=== PATIENT | female | born 1940 | race Caucasian/White ===

== ENCOUNTER 2016-06-14 08:08 | Emergency (ER) | payer MEDICARE, BC | END 2016-06-14 12:37 | disposition home or self-care (01) | DX: R07.89 Other chest pain (principal); R14.2 Eructation ==

== ENCOUNTER 2016-06-18 09:41 | Outpatient (CLI) | payer MEDICARE, BC | END 2016-06-18 09:42 | disposition home or self-care (01) | DX: Z13.820 Encounter for screening for osteoporosis (principal); M85.88 Other specified disorders of bone density and structure, other site; Z78.0 Asymptomatic menopausal state ==

== ENCOUNTER 2016-06-18 09:46 | Outpatient (CLI) | payer MEDICARE, BC | END 2016-06-18 09:47 | disposition home or self-care (01) | DX: Z12.31 Encounter for screening mammogram for malignant neoplasm of breast (principal); Z80.3 Family history of malignant neoplasm of breast ==

== ENCOUNTER 2016-11-09 15:00 | Outpatient (CLI) | payer MEDICARE, BC | END 2016-11-09 15:01 | disposition home or self-care (01) | LOC: LAB 15:00 | PROVIDERS: ATTEND Internal Medicine | DX: R60.0 Localized edema (principal); M25.562 Pain in left knee | CPT/HCPCS: 36415; 85379; 85651; 86140 ==

== ENCOUNTER 2017-07-29 16:19 | Outpatient (CLI) | payer MEDICARE, BC ==
[2017-07-29 16:42] LABS: BASOPHILS # (AUTO) 0.1 10^3/uL (0.0-0.1); BASOPHILS % (AUTO) 1.1 %; EOSINOPHILS # (AUTO) 0.2 10^3/uL (0.0-0.7); EOSINOPHILS % (AUTO) 2.1 %; HGB - HEMOGLOBIN 13.3 g/dL (12.0-16.0); LYMPHOCYTES # (AUTO) 2.8 10^3/uL (1.5-3.5); MEAN CORPUSCULAR HEMOGLOBIN 30.2 pg (27.0-31.0); MEAN CORPUSCULAR HGB CONC 33.6 g/dL (32.0-36.0); MEAN CORPUSCULAR VOLUME 89.9 fL (81.0-99.0); MEAN PLATELET VOLUME 8.3 fL (7.9-10.8); MONOCYTES % (AUTO) 9.5 %; NEUTROPHILS # (AUTO) 6.3 10^3/uL (1.5-6.6); NEUTROPHILS % (AUTO) 60.3 %; PLT - PLATELET COUNT 534 10^3/uL (130-450); RED BLOOD COUNT 4.41 10^6/uL (4.20-5.40); RED CELL DISTRIBUTION WIDTH 14.6 % (12.0-15.0); WHITE BLOOD COUNT 10.4 x10^3/uL (4.8-10.8)
== END 2017-07-29 16:20 | disposition home or self-care (01) ==
LOC: LAB 16:19
PROVIDERS: ATTEND Orthopaedic Surgery
DX: T84.84XA Pain due to internal orthopedic prosthetic devices, implants and grafts, initial encounter (principal)
CPT/HCPCS: 36415; 85025; 85651; 86140

== ENCOUNTER 2017-08-23 12:55 | Outpatient (CLI) | payer MEDICARE, BC ==
--- NOTE | 2017-08-24 14:02 | Mammography Report ---
DIGITAL SCREENING MAMMOGRAM: 08/23/2017 CLINICAL INDICATION: A 76-year-old nulliparous patient with family history of breast cancer, history of benign biopsy for screening. COMPARISON: 06/2016, 02/2012, 04/2010, 01/2009. TECHNIQUE: Routine CC and MLO projections were obtained of the breasts. FINDINGS: The breasts demonstrate scattered fibroglandular densities bilaterally. Coarse and punctate, typically benign calcifications are present. Post-biopsy changes are stable. No suspicious masses, clustered microcalcifications, or regions of architectural distortion are identified. IMPRESSION: BENIGN FINDINGS. RECOMMENDATION: Routine annual screening unless otherwise clinically indicated. BI-RADS CATEGORY 2 - BENIGN FINDINGS. STANDARD QUALIFYING STATEMENTS: 1. This examination was reviewed with the aid of Computer-Aided Detection (CAD). 2. A negative or benign imaging report should not delay biopsy if clinically suspicious findings are present. Consider surgical consultation if warranted. More than 5% of cancers are not identified by imaging. 3. Dense breasts may obscure an underlying neoplasm. TD: 08/24/2017 14:02
== END 2017-08-23 12:56 | disposition home or self-care (01) ==
LOC: DI 12:55
PROVIDERS: ATTEND Internal Medicine
DX: Z12.31 Encounter for screening mammogram for malignant neoplasm of breast (principal); Z80.3 Family history of malignant neoplasm of breast
CPT/HCPCS: 77067

== ENCOUNTER 2017-08-23 13:25 | Outpatient (CLI) | payer MEDICARE, BC ==
[2017-08-23 13:55] LABS: BASOPHILS # (AUTO) 0.1 10^3/uL (0.0-0.1); BASOPHILS % (AUTO) 1.4 %; EOSINOPHILS # (AUTO) 0.2 10^3/uL (0.0-0.7); EOSINOPHILS % (AUTO) 2.1 %; HGB - HEMOGLOBIN 13.7 g/dL (12.0-16.0); LYMPHOCYTES # (AUTO) 2.4 10^3/uL (1.5-3.5); LYMPHOCYTES % (AUTO) 25.4 %; MEAN CORPUSCULAR HEMOGLOBIN 30.1 pg (27.0-31.0); MEAN CORPUSCULAR HGB CONC 33.3 g/dL (32.0-36.0); MEAN CORPUSCULAR VOLUME 90.3 fL (81.0-99.0); MEAN PLATELET VOLUME 8.3 fL (7.9-10.8); MONOCYTES # (AUTO) 0.8 10^3/uL (0.0-1.0); MONOCYTES % (AUTO) 8.1 %; NEUTROPHILS # (AUTO) 5.8 10^3/uL (1.5-6.6); PLT - PLATELET COUNT 564 10^3/uL (130-450); RED BLOOD COUNT 4.56 10^6/uL (4.20-5.40); RED CELL DISTRIBUTION WIDTH 14.7 % (12.0-15.0); WHITE BLOOD COUNT 9.3 x10^3/uL (4.8-10.8)
[2017-08-23 14:06] LABS: ALBUMIN 4.4 g/dL (3.2-5.5); ALBUMIN/GLOBULIN RATIO 1.6 (1.0-2.2); BILIRUBIN,TOTAL 0.6 mg/dL (0.2-1.0); CALCIUM 9.2 mg/dL (8.5-10.3); CREATININE 0.7 mg/dL (0.4-1.0); TOTAL PROTEIN 7.1 g/dL (6.7-8.2)
== END 2017-08-23 13:26 | disposition home or self-care (01) ==
LOC: LAB 13:25
PROVIDERS: ATTEND Internal Medicine
DX: G62.9 Polyneuropathy, unspecified (principal); R60.0 Localized edema
CPT/HCPCS: 36415; 80053; 85025

== ENCOUNTER 2017-11-15 08:00 | Outpatient (CLI) | payer MEDICARE, BC ==
[2017-11-15 17:49] LABS: BASOPHILS # (AUTO) 0.1 10^3/uL (0.0-0.1); EOSINOPHILS # (AUTO) 0.2 10^3/uL (0.0-0.7); EOSINOPHILS % (AUTO) 1.9 %; HGB - HEMOGLOBIN 13.6 g/dL (12.0-16.0); LYMPHOCYTES # (AUTO) 2.8 10^3/uL (1.5-3.5); LYMPHOCYTES % (AUTO) 29.3 %; MEAN CORPUSCULAR HGB CONC 32.5 g/dL (32.0-36.0); MEAN CORPUSCULAR VOLUME 92.2 fL (81.0-99.0); MEAN PLATELET VOLUME 8.7 fL (7.9-10.8); MONOCYTES # (AUTO) 0.8 10^3/uL (0.0-1.0); MONOCYTES % (AUTO) 8.2 %; NEUTROPHILS # (AUTO) 5.8 10^3/uL (1.5-6.6); NEUTROPHILS % (AUTO) 59.6 %; PLT - PLATELET COUNT 619 10^3/uL (130-450); RED BLOOD COUNT 4.52 10^6/uL (4.20-5.40); RED CELL DISTRIBUTION WIDTH 14.4 % (12.0-15.0); WHITE BLOOD COUNT 9.7 x10^3/uL (4.8-10.8)
== END 2017-11-15 08:01 | disposition home or self-care (01) ==
LOC: LAB.F 08:00
PROVIDERS: ATTEND Internal Medicine
DX: D47.3 Essential (hemorrhagic) thrombocythemia (principal)
CPT/HCPCS: 85025

== ENCOUNTER 2018-03-25 16:21 | Emergency (ER) | payer MEDICARE, BC ==
[2018-03-25 16:36] VITALS: BP 164/72
--- NOTE | 2018-03-25 17:51 | XRAY Report ---
Reason: Trauma Procedure Date: 03/25/2018 Accession Number: [id number] / [id number] Procedure: XR - Hand 3 View RT CPT Code: FULL RESULT: EXAM: RIGHT HAND RADIOGRAPHY EXAM DATE: 03/25/2018 05:13 PM. CLINICAL HISTORY: Hand pain post trauma. COMPARISON: None. TECHNIQUE: 3 views. FINDINGS: Bones: There is well-corticated opacity noted about the distal aspect of the proximal phalanx of the first digit, with additional corticated opacity about the first IP joint. Old fracture deformity involving the ulnar styloid. Joints: Moderate osteoarthritic changes present. Soft Tissues: Normal. No soft tissue swelling. IMPRESSION: No obvious acute fracture seen. Well-corticated opacities described above including ulnar styloid to suggest remote fracture. If there is focal pain about the first IP joint, chip fracture may be considered. RADIA
--- NOTE | 2018-03-25 18:06 | ED Physician Documentation ---
PD HPI UPPER EXT INJURY - Stated complaint Stated Complaint: RT HAND PX - Chief complaint Chief Complaint: Ext Problem - History obtained from History obtained from: Patient, Family - History of Present Illness Location: Right, Hand Type of injury: Crush (under a rachel tree yesterday) Where injury occurred: Home Timing - onset: Yesterday Timing - duration: Days Timing - details: Abrupt onset Pain level max: 7 Pain level now: 5 Improved by: Rest, Ice, Immobilization Worsened by: Moving, Palpating Associated symptoms: Swelling, Discolored (bruising). No: Weakness, Numbness, Tingling Contributing factors: No: Anticoagulated Review of Systems Constitutional: denies: Fever Neurologic: denies: Focal weakness, Numbness PD PAST MEDICAL HISTORY - Past Medical History Cardiovascular: None Respiratory: None Neuro: None Endocrine/Autoimmune: None GI: None : None HEENT: None Psych: None Musculoskeletal: Osteoarthritis Derm: None - Past Surgical History Past Surgical History: Yes Ortho: Knee replacement - Present Medications Home Medications: Ambulatory Orders Medication Instructions Recorded Confirmed Ascorbic Acid [Vitamin C] 1 tab ORAL DAILY 12/06/17 02/21/18 Aspirin 1 tab ORAL DAILY 12/06/17 02/21/18 Cholecalciferol [Vitamin D3] 1 tab ORAL DAILY 12/06/17 02/21/18 Magnesium 1 tab ORAL DAILY 12/06/17 02/21/18 Hydroxyurea 03/25/18 03/25/18 - Allergies Allergies/Adverse Reactions: Allergies Allergy/AdvReac Type Severity Reaction Status Date / Time ciprofloxacin [From Cipro] Allergy Unknown Verified 03/25/18 16:36 ciprofloxacin HCl * Allergy Unknown Verified 03/25/18 16:36 [From Cipro] codeine Allergy Unknown Verified 03/25/18 16:36 erythromycin base Allergy Unknown Verified 03/25/18 16:36 Opioids-Methadone and Related Allergy Unknown Verified 03/25/18 16:36 Penicillins Allergy Unknown Verified 03/25/18 16:36 - Social History Does the pt smoke?: No Smoking Status: Never smoker Does the pt drink ETOH?: Yes Does the pt have substance abuse?: No - POLST Patient has POLST: No PD ED PE NORMAL - Vitals Vital signs reviewed: Yes - General General: Alert and oriented X 3, No acute distress - Derm Derm: Warm and dry - Extremities Extremities: Other (Right hand - Swelling to the dorsum of the hand, especially over the second and third metacarpal joints. There is ecchymosis and mild redness. Neurovascularly intact. No evidence of tendon injury. No wrist tenderness.) - Neuro Neuro: Alert and oriented X 3 Results - Vitals Vitals: Vital Signs - 24 hr 03/25/18 16:34 Temperature 36.4 C L Heart Rate 70 Respiratory 16 Rate Blood Pressure 164/72 H O2 Saturation 98 Oxygen O2 Source Room air - Rads (name of study) R hand xray Radiology: Prelim report reviewed, EMP read contemporaneously, See rad report (No acute bony abnormality) Procedures - Splint (location) R hand Splint applied by: Physician, Tech Type of splint: Fiberglass, Volar cock up Other: Patient tolerated well, No complications, Neurovascular intact PD MEDICAL DECISION MAKING - ED course Complexity details: reviewed results, considered differential, d/w patient, d/w family ED course: Patient is a 77-year-old female with a crush injury to the right hand. No acute bony abnormalities. Placed in a volar splint for comfort. Neurovascularly intact. Declines any pain medication here or for home. Patient counseled regarding signs and symptoms for which I believe and urgent re-evaluation would be necessary. Patient with good understanding of and agreement to plan and is comfortable going home at this time This document was made in part using voice recognition software. While efforts are made to proofread this document, sound alike and grammatical errors may occur. Departure - Departure Disposition: 01 Home, Self Care Clinical Impression: Contusion of right hand Qualifiers: Encounter type: initial encounter Qualified Code(s): S60.221A - Contusion of right hand, initial encounter Condition: Good Instructions: ED Contusion Hand Follow-Up: Gunnar Szymanski MD [Primary Care Provider] - Within 1 week Comments: You can use Motrin or Tylenol as needed for pain at home. Return if you worsen. Your x-rays are normal today. Wear the splint as needed for comfort. Discharge Date/Time: 03/25/18 18:42
== END 2018-03-25 18:42 | disposition home or self-care (01) ==
LOC: ED 16:21
DX: S60.221A Contusion of right hand, initial encounter (principal); W23.0XXA Caught, crushed, jammed, or pinched between moving objects, initial encounter; Y92.009 Unspecified place in unspecified non-institutional (private) residence as the place of occurrence of the external cause; Z96.659 Presence of unspecified artificial knee joint; Z79.82 Long term (current) use of aspirin
CPT/HCPCS: 29125; 99282; 99283

== ENCOUNTER 2018-06-19 09:57 | Outpatient (CLI) | payer MEDICARE, BC ==
[2018-06-19 20:23] LABS: BASOPHILS # (AUTO) 0.1 10^3/uL (0.0-0.1); BASOPHILS % (AUTO) 1.1 %; EOSINOPHILS # (AUTO) 0.1 10^3/uL (0.0-0.7); EOSINOPHILS % (AUTO) 1.8 %; HGB - HEMOGLOBIN 14.1 g/dL (12.0-16.0); LYMPHOCYTES # (AUTO) 2.2 10^3/uL (1.5-3.5); LYMPHOCYTES % (AUTO) 34.4 %; MEAN CORPUSCULAR HEMOGLOBIN 32.5 pg (27.0-31.0); MEAN CORPUSCULAR VOLUME 98.5 fL (81.0-99.0); MEAN PLATELET VOLUME 8.9 fL (7.9-10.8); MONOCYTES # (AUTO) 0.5 10^3/uL (0.0-1.0); MONOCYTES % (AUTO) 8.3 %; NEUTROPHILS # (AUTO) 3.5 10^3/uL (1.5-6.6); NEUTROPHILS % (AUTO) 54.4 %; PLT - PLATELET COUNT 410 10^3/uL (130-450); RED BLOOD COUNT 4.33 10^6/uL (4.20-5.40); RED CELL DISTRIBUTION WIDTH 14.9 % (12.0-15.0); WHITE BLOOD COUNT 6.4 x10^3/uL (4.8-10.8)
== END 2018-06-19 09:58 | disposition home or self-care (01) ==
LOC: LAB.F 09:57
PROVIDERS: ATTEND Physician Assistant Surgical
DX: Z96.652 Presence of left artificial knee joint (principal)
CPT/HCPCS: 36415; 85025; 86140

== ENCOUNTER 2018-08-07 15:05 | Emergency (ER) | payer MEDICARE, BC ==
--- NOTE | 2018-08-07 17:09 | Ultrasound Report ---
Reason: Leg pain Procedure Date: 08/07/2018 Accession Number: [id number] / [id number] Procedure: US - Duplex Ext Veins Right CPT Code: FULL RESULT: EXAM: RIGHT LOWER EXTREMITY VENOUS ULTRASOUND EXAM DATE: 08/07/2018 03:50 PM. CLINICAL HISTORY: Leg pain. COMPARISON: None. TECHNIQUE: Real-time sonographic vascular imaging was performed by the airfield manager through the lower extremity utilizing both color-flow and Doppler spectral analysis. Multiple telesales representative static images were saved for review. FINDINGS: Common Femoral Vein (CFV): Normal. CFV-GSV Junction: Normal. Profunda Femoral Vein (PFV): Normal. Femoral Vein (FV) Prox: Normal. Femoral Vein (FV) Mid: Normal. Femoral Vein (FV) Dist: Normal. Popliteal Vein: Normal. Posterior Tibial Veins: Normal. Peroneal Veins: Normal. Contralateral Side CFV: Normal. Other: None. IMPRESSION: No evidence for deep venous thrombosis. RADIA
--- NOTE | 2018-08-07 17:12 | ED Physician Documentation ---
PD HPI LOWER EXT INJURY - Stated complaint Stated Complaint: SENT BY DR/DVT RULE OUT - Chief complaint Chief Complaint: Ext Problem - History obtained from History obtained from: Patient, Family - History of Present Illness PD HPI LOW EXT INJURY LOCATION: Right (Burning right medial calf pain since last night without injury. She has diagnoses of spinal stenosis and chronic regional pain syndrome but just drove 5 to 5 days from [place] and is here to rule DVT. No chest pain or trouble breathing.) Review of Systems Constitutional: reports: Reviewed and negative Cardiac: reports: Reviewed and negative Respiratory: reports: Reviewed and negative PD PAST MEDICAL HISTORY - Past Medical History Cardiovascular: None Respiratory: None Neuro: None Endocrine/Autoimmune: None GI: None : None HEENT: None Psych: None Musculoskeletal: Osteoarthritis Derm: None - Past Surgical History Past Surgical History: Yes Ortho: Knee replacement - Present Medications Home Medications: Ambulatory Orders Medication Instructions Recorded Confirmed Aspirin 1 tab ORAL DAILY 12/06/17 06/20/18 Cholecalciferol [Vitamin D3] 1 tab ORAL DAILY 12/06/17 06/20/18 Hydroxyurea 1 tab ORAL DAILY 03/25/18 06/20/18 Alpha. 1 tab ORAL DAILY 06/20/18 06/20/18 Vitamin B1 1 tab ORAL DAILY 06/20/18 06/20/18 Vitamin B12 2 tab ORAL DAILY 06/20/18 06/20/18 - Allergies Allergies/Adverse Reactions: Allergies Allergy/AdvReac Type Severity Reaction Status Date / Time ciprofloxacin [From Cipro] Allergy Unknown Verified 03/25/18 16:36 ciprofloxacin HCl * Allergy Unknown Verified 03/25/18 16:36 [From Cipro] codeine Allergy Unknown Verified 03/25/18 16:36 erythromycin base Allergy Unknown Verified 03/25/18 16:36 Opioids-Methadone and Related Allergy Unknown Verified 03/25/18 16:36 Penicillins Allergy Unknown Verified 08/07/18 15:13 - Social History Does the pt smoke?: No Smoking Status: Never smoker Does the pt drink ETOH?: Yes Does the pt have substance abuse?: No - Immunizations Immunizations are current?: Yes - POLST Patient has POLST: No PD ED PE NORMAL - Vitals Vital signs reviewed: Yes - General General: Alert and oriented X 3, No acute distress - Extremities Extremities: No edema, No calf tenderness / cord - Neuro Neuro: Alert and oriented X 3, Normal speech Results - Vitals Vitals: Vital Signs - 24 hr 08/07/18 15:12 Temperature 36.8 C Heart Rate 76 Respiratory 20 Rate Blood Pressure 120/108 H O2 Saturation 99 Oxygen O2 Source Room air - Rads (name of study) RLE DVt sono Radiology: EMP read contemporaneously (neg) Departure - Departure Disposition: Home, Self Care Clinical Impression: Pain of lower extremity Qualifiers: Laterality: right Qualified Code(s): M79.604 - Pain in right leg Condition: Good Record reviewed to determine appropriate education?: Yes Instructions: ED Acute Pain [facility] Comments: Your blood pressure was elevated today on check into the emergency department. This does not mean that you have hypertension, it is a common phenomenon to come to the emergency department and have elevated blood pressure. I recommend that you see your primary care physician within the week to have it rechecked when you are feeling better.
[2018-08-07 17:20] VITALS: BP 140/78
== END 2018-08-07 17:40 | disposition home or self-care (01) ==
LOC: ED 15:05
DX: M79.604 Pain in right leg (principal); R03.0 Elevated blood-pressure reading, without diagnosis of hypertension; Z96.659 Presence of unspecified artificial knee joint
CPT/HCPCS: 99282; 99283

== ENCOUNTER 2018-09-29 08:00 | Outpatient (CLI) | payer MEDICARE, BC ==
[2018-09-29 17:39] LABS: BILIRUBIN,URINE NEGATIVE (NEGATIVE); GLUCOSE, URINE (UA) NEGATIVE (NEGATIVE); KETONES,URINE (UA) NEGATIVE (NEGATIVE); LEUKOCYTE ESTERASE, URINE NEGATIVE (NEGATIVE); NITRITE,URINE NEGATIVE (NEGATIVE); OCCULT BLOOD,URINE NEGATIVE (NEGATIVE); PH,URINE 5.5 PH (5.0-7.5); PROTEIN,URINE NEGATIVE (NEGATIVE); UROBILINOGEN,URINE 0.2 (NORMAL) E.U./dL (NORMAL)
[2018-09-29 17:46] LABS: BACTERIA,URINE None Seen /HPF (None Seen); CLARITY,URINE CLEAR (CLEAR); RBC,URINE 0-5 /HPF (0-5); SQUAMOUS EPITHELIAL CELL,UR NONE SEEN (<= Few)
== END 2018-09-29 23:59 | disposition home or self-care (01) ==
LOC: LAB.R 08:00
PROVIDERS: ATTEND Obstetrics & Gynecology
DX: R32 Unspecified urinary incontinence (principal)
CPT/HCPCS: 81001; 87086

== ENCOUNTER 2019-10-16 09:33 | Outpatient (CLI) | payer MEDICARE, BC | END 2019-10-16 09:34 | disposition home or self-care (01) | LOC: DI 09:33 | PROVIDERS: ATTEND Nurse Practitioner | DX: Z53.9 Procedure and treatment not carried out, unspecified reason (principal) ==

== ENCOUNTER 2020-09-05 09:39 | Outpatient (CLI) | payer MEDICARE, BC ==
[2020-09-05 14:30] LABS: BASOPHILS % (AUTO) 0.6 %; EOSINOPHILS # (AUTO) 0.2 10^3/uL (0.0-0.7); EOSINOPHILS % (AUTO) 2.2 %; HCT - HEMATOCRIT 45.1 % (37.0-47.0); HGB - HEMOGLOBIN 14.2 g/dL (12.0-16.0); LYMPHOCYTES # (AUTO) 2.1 10^3/uL (1.5-3.5); LYMPHOCYTES % (AUTO) 30.8 %; MEAN CORPUSCULAR HEMOGLOBIN 32.1 pg (27.0-31.0); MEAN CORPUSCULAR HGB CONC 31.5 g/dL (32.0-36.0); MEAN CORPUSCULAR VOLUME 101.8 fL (81.0-99.0); MEAN PLATELET VOLUME 10.4 fL (7.9-10.8); MONOCYTES # (AUTO) 0.7 10^3/uL (0.0-1.0); MONOCYTES % (AUTO) 9.6 %; NEUTROPHILS # (AUTO) 3.8 10^3/uL (1.5-6.6); NEUTROPHILS % (AUTO) 56.5 %; PLT - PLATELET COUNT 510 10^3/uL (130-450); RED BLOOD COUNT 4.43 10^6/uL (4.20-5.40); WHITE BLOOD COUNT 6.8 x10^3/uL (4.8-10.8)
[2020-09-05 15:39] LABS: ALBUMIN 4.5 g/dL (3.2-5.5); ALBUMIN/GLOBULIN RATIO 1.6 (1.0-2.2); ALKALINE PHOSPHATASE 61 IU/L (42-121); ALT ALANINE AMINOTRANSFERASE 18 IU/L (10-60); AST ASPARTATE AMINOTRANSFERASE 26 IU/L (10-42); BUN - BLOOD UREA NITROGEN 21 mg/dL (6-20); CALCIUM 9.2 mg/dL (8.5-10.3); CARBON DIOXIDE - CO2 28 mmol/L (21-32); CHLORIDE 101 mmol/L (101-111); CHOL/HDL RATIO 3.4 (<4.4); CHOLESTEROL 231 mg/dL; CREATININE 0.7 mg/dL (0.4-1.0); GFR - MDRD 80 (>89); GLUCOSE 100 mg/dL (70-100); HDL CHOLESTEROL 68 mg/dL; LDL CHOLESTEROL,CALCULATED 144 mg/dL; LDL/HDL RATIO 2.1 (<4.4); POTASSIUM 4.6 mmol/L (3.5-5.0); SODIUM 136 mmol/L (135-145); TOTAL PROTEIN 7.4 g/dL (6.7-8.2); TRIGLYCERIDES 94 mg/dL; VLDL CHOLESTEROL 19 mg/dL
[2020-09-05 15:49] LABS: THYROID STIMULATING HORMONE 3.47 uIU/mL (0.34-5.60)
[2020-09-05 18:45] LABS: ESTIMATED AVERAGE GLUCOSE 105 mg/dL (70-100); HEMOGLOBIN A1c% 5.3 % (4.27-6.07)
== END 2020-09-05 09:40 | disposition home or self-care (01) ==
LOC: LAB.S 09:39
PROVIDERS: ATTEND Internal Medicine
DX: D47.3 Essential (hemorrhagic) thrombocythemia (principal); Z13.220 Encounter for screening for lipoid disorders; G62.9 Polyneuropathy, unspecified
CPT/HCPCS: 36415; 80053; 80061; 81599; 82607; 83036; 83721; 84155; 84165; 84443; 85025; 86334

== ENCOUNTER 2021-06-22 14:36 | Outpatient (CLI) | payer MEDICARE, BC ==
[2021-06-22 14:54] LABS: BASOPHILS # (AUTO) 0.1 10^3/uL (0.0-0.1); BASOPHILS % (AUTO) 0.7 %; EOSINOPHILS # (AUTO) 0.1 10^3/uL (0.0-0.7); EOSINOPHILS % (AUTO) 1.6 %; HCT - HEMATOCRIT 40.9 % (37.0-47.0); HGB - HEMOGLOBIN 13.3 g/dL (12.0-16.0); LYMPHOCYTES % (AUTO) 24.3 %; MEAN CORPUSCULAR HEMOGLOBIN 32.8 pg (27.0-31.0); MEAN CORPUSCULAR HGB CONC 32.5 g/dL (32.0-36.0); MEAN PLATELET VOLUME 10.1 fL (7.9-10.8); MONOCYTES # (AUTO) 0.9 10^3/uL (0.0-1.0); MONOCYTES % (AUTO) 10.2 %; NEUTROPHILS # (AUTO) 5.3 10^3/uL (1.5-6.6); PLT - PLATELET COUNT 441 10^3/uL (130-450); RED BLOOD COUNT 4.05 10^6/uL (4.20-5.40); RED CELL DISTRIBUTION WIDTH 14.6 % (12.0-15.0); WHITE BLOOD COUNT 8.4 x10^3/uL (4.8-10.8)
[2021-06-22 15:10] LABS: CHOL/HDL RATIO 2.9 (<4.4); CHOLESTEROL 211 mg/dL; HDL CHOLESTEROL 72 mg/dL; LDL CHOLESTEROL,CALCULATED 125 mg/dL; LDL/HDL RATIO 1.7 (<4.4); TRIGLYCERIDES 71 mg/dL; VLDL CHOLESTEROL 14 mg/dL
[2021-06-22 15:21] LABS: THYROID STIMULATING HORMONE 3.18 uIU/mL (0.34-5.60)
== END 2021-06-22 14:37 | disposition home or self-care (01) ==
LOC: LAB 14:36
PROVIDERS: ATTEND Nurse Practitioner Family
DX: I88.9 Nonspecific lymphadenitis, unspecified (principal); E78.5 Hyperlipidemia, unspecified
CPT/HCPCS: 36415; 80061; 83721; 84443; 85025

== ENCOUNTER 2021-06-23 09:34 | Outpatient (CLI) | payer MEDICARE, BC ==
--- NOTE | 2021-06-23 21:41 | Ultrasound Report ---
PROCEDURE: Head or Neck Soft Tissue INDICATIONS: CERVICAL LYMPHADENITIS TECHNIQUE: Real time scanning was performed of the neck region of interest, with image documentation . COMPARISON: None. FINDINGS: Sonographic images of the right submandibular gland demonstrate a focal area of decreased e chogenicity within the midportion measuring 16 x 14 x 14 mm. There is increased vascularity. IMPRESSION: Hypoechoic focus within the submandibular gland as above. This appears to be at least partially solid . Etiology is uncertain on the basis of this exam and further evaluation with CT neck with contrast i s recommended, as malignancy cannot be excluded. Reviewed by: Tina Rodriguez MD on 06/23/2021 9:40 PM PST Approved by: Tina Rodriguez MD on 06/23/2021 9:40 PM PST Station ID: [id number]
== END 2021-06-23 09:35 | disposition home or self-care (01) ==
LOC: DI 09:34
PROVIDERS: ATTEND Nurse Practitioner Family
DX: R93.89 Abnormal findings on diagnostic imaging of other specified body structures (principal)

== ENCOUNTER 2021-07-03 17:42 | Outpatient (CLI) | payer MEDICARE, BC ==
[2021-07-03 18:16] LABS: CALCIUM 9.3 mg/dL (8.5-10.3); CREATININE 0.9 mg/dL (0.4-1.0); POTASSIUM 4.3 mmol/L (3.5-5.0)
== END 2021-07-03 17:43 | disposition home or self-care (01) ==
LOC: LAB 17:42
PROVIDERS: ATTEND Nurse Practitioner Family
DX: R22.1 Localized swelling, mass and lump, neck (principal)
CPT/HCPCS: 36415; 80048

== ENCOUNTER 2022-02-05 14:53 | Outpatient (CLI) | payer MEDICARE, BC ==
[2022-02-05 15:38] LABS: THYROID STIMULATING HORMONE 3.62 uIU/mL (0.34-5.60)
[2022-02-05 15:40] LABS: FREE T4 (FREE THYROXINE) 0.78 ng/dL (0.58-1.64)
== END 2022-02-05 14:54 | disposition home or self-care (01) ==
LOC: LAB 14:53
PROVIDERS: ATTEND Internal Medicine
DX: E04.1 Nontoxic single thyroid nodule (principal)
CPT/HCPCS: 36415; 84439; 84443

== ENCOUNTER 2022-07-07 15:40 | Outpatient (CLI) | payer MEDICARE, BC ==
[2022-07-07 16:24] LABS: THYROID STIMULATING HORMONE 2.07 uIU/mL (0.34-5.60)
[2022-07-07 16:26] LABS: FREE T4 (FREE THYROXINE) 0.9 ng/dL (0.58-1.64)
== END 2022-07-07 15:41 | disposition home or self-care (01) ==
LOC: LAB 15:40
PROVIDERS: ATTEND Internal Medicine
DX: E04.1 Nontoxic single thyroid nodule (principal)
CPT/HCPCS: 36415; 84439; 84443

== ENCOUNTER 2022-07-28 12:29 | Outpatient (CLI) | payer MEDICARE, BC ==
--- NOTE | 2022-07-28 15:37 | Ultrasound Report ---
PROCEDURE: Head or Neck Soft Tissue INDICATIONS: THYROID NODULE TECHNIQUE: Real-time scanning was performed of the thyroid gland, with image documentation. COMPARISON: None FINDINGS: Right: Thyroid lobe measures 4.7 x 2.0 x 1.5 cm, and is homogeneous in echotexture. Left: Thyroid lobe measures 6.5 x 4.6 x 5.4 cm, and is homogenous in echotexture. Isthmus: 1.2 mm thick. Nodule number: One Location: Right inferior pole Size: 0.7 x 0.7 x 0.5 cm. Composition: Solid (2 points). Echogenicity: Isoechoic (1 point). Shape: wider than tall. Margins: Smooth (0 points). Echogenic foci: None (0 points). Total points: 3 ACR TI-RADS category: Mildly suspicious (3 points). Nodule number: Two Location: Left lobe Size: 6.0 x 4.3 x 5.3 cm. Composition: Mixed cystic and solid (1 point). Echogenicity: Isoechoic (1 point). Shape: wider than tall. Margins: Smooth (0 points). Echogenic foci: None (0 points). Total points: 2 ACR TI-RADS category: Not suspicious (2 points). IMPRESSION: Bilateral thyroid nodules. The largest nodule in the left is not suspicious, and does no t require follow-up. The small nodule in the right does not meet size criteria for biopsy, but one-ye ar follow-up is recommended. ACR TI-RADS definitions and recommendations: TI-RADS 1 (benign): 0 points. FNA not needed. TI-RADS 2 (not suspicious): 2 points. FNA not needed. TI-RADS 3 (mildly suspicious): 3 points. "FNA if 2.5 cm or larger, follow up if 1.5 cm or larger (at 1, 3, and 5 years). TI-RADS 4 (moderately suspicious): 4-6 points. "FNA if 1.5 cm or larger, follow up if 1 cm or larger (at 1, 2, 3, and 5 years). TI-RADS 5 (highly suspicious): 7 points or more. "FNA if 1 cm or larger, follow up if 0.5 cm or larger (every year for 5 years). Reviewed by: Marcell Kelley on 07/28/2022 3:36 PM PDT Approved by: Marcell Kelley on 07/28/2022 3:36 PM PDT Station ID: [id number]
== END 2022-07-28 12:30 | disposition home or self-care (01) ==
LOC: DI 12:29
PROVIDERS: ATTEND Internal Medicine
DX: E04.2 Nontoxic multinodular goiter (principal)

== ENCOUNTER 2023-05-13 14:42 | Outpatient (CLI) | payer MEDICARE, BC ==
--- NOTE | 2023-05-13 16:06 | XRAY Report ---
PROCEDURE: Sacrum/Coccyx INDICATIONS: COCCYX PAIN TECHNIQUE: 3 views of the sacrum and coccyx acquired. COMPARISON: None. FINDINGS: Bones: No fractures or dislocations. No suspicious bony lesions. DJD of the lower lumbar spine. Soft tissues: Visualized bowel gas pattern is normal. No suspicious soft tissue densities. IMPRESSION: No acute bony abnormality. Reviewed by: Jose Avalos MD on 05/13/2023 4:05 PM PST Approved by: Jose Avalos MD on 05/13/2023 4:05 PM PST Station ID: [id number]
== END 2023-05-13 14:43 | disposition home or self-care (01) ==
LOC: DI.N 14:42
PROVIDERS: ATTEND Internal Medicine
DX: M53.3 Sacrococcygeal disorders, not elsewhere classified (principal)